=== PATIENT | female | born 1995 | race Hispanic/Latino ===

== ENCOUNTER 2018-01-04 13:17 | Emergency (ER) | payer MEDICAID, SELFPAY ==
[2018-01-04 13:18] VITALS: BP 139/89; BP 139/98; PULSE 89; RESP 14; RESP 18; TEMP 36.1; O2SAT 98; BMI 28.8
--- NOTE | 2018-01-04 13:37 | ED.VISSUMM ---
- ER Visit Summary Date of Service: 01/04/18 Chief Complaint: Headache History of Present Illness: The patient is a 22 F who presents after developing a headache at work yesterday. She works in a car [employer] and is concerned about possible carbon monoxide exposure. Patient states after going home last evening she was just wanted to go to bed and slept all night. She did not hear her phone ringing right next to her. She went back to work this morning and her headache slightly worsened. She feels nauseated today. She has not taken anything for her headaches. She denies any recent head injury or cold-like symptoms. Physical Examination: Vital signs are unremarkable. Patient sitting upright in bed in no acute distress. Head neck examination is unremarkable. Heart is regular rate and rhythm. Lung sounds are clear. Abdomen is soft nontender. Neuro exam is normal. Test Results: CBC and chemistry studies normal. test is negative. Carboxyhemoglobin level is 1.5. Emergency Department Course and Treatment: Patient was given Toradol, Zofran, and IV fluids. On repeat evaluation headache is improved but she still feels somewhat nauseated. She be given Zofran for home as needed. Treatment Plan: [] Disposition: Discharge Impression: Cephalgia, improved This note was generated with [employer] dictation software. It may contain incorrect words, spelling, and punctuation that were not noted in review of the chart prior to signing ED Disposition - Plan for ED Patient: Chief Complaint: Headache Referrals: NOT,DEFINED [NON-STAFF] -
[2018-01-04] MEDS: Ondansetron 4 MG/2 ML Vial IV (14:01)
[2018-01-04] MEDS: 0.9% Normal Saline 1,000 ML 1000 ML IV (14:01)
[2018-01-04] MEDS: Ketorolac 30 MG/ML Syringe IV (14:01)
[2018-01-04 14:12] LABS: Absolute Lymphocyte Count 2.54 X10^3/ul (0.83-4.51); Absolute Neutrophil Count 3.7 X10^3/uL (2.0-7.7); Basophil# 0.01 X10^3/uL; Basophil% 0.2 % (0-1); Eosinophil# 0.05 X10^3/uL; Eosinophils% 0.8 % (0-5); Hematocrit 40.4 % (37-47); Lymphocyte # 2.54 X10^3/ul (4.0); Lymphocyte % 38.5 % (19-41); Mean Corp Hgb Conc 32.2 g/gl (32-36); Mean Corpuscular Hgb 27.1 pg (27.0-32.0); Mean Corpuscular Volume 84.3 fL (81-99); Mean Platelet Vol. 10.9 fl (6.2-12.0); Monocyte# 0.35 X10^3/uL; Monocyte% 5.3 % (0-10); Neutrophil # 3.65 X10^3/uL (2.7-7.7); Neutrophil % 55.2 % (47-70); Platelet Count 205 K/mm3 (150-450); RBC Distribution Width SD 39.5 fl (35.1-43.9); Red Blood Count 4.79 M/mm3 (4.2-5.4); White Blood Count 6.6 K/mm3 (4.4-11.0)
[2018-01-04 14:13] LABS: POSITIVE COUNT NO; POSITIVE DIFFERENTIAL NO; POSITIVE MORPHOLOGY NO
[2018-01-04 14:16] LABS: Carboxyhemoglobin Frac (CO) 1.5 % (0.0-1.5)
[2018-01-04 14:27] LABS: Anion Gap 8 (5-15); BUN 10 mg/dL (7-18); BUN/Creat Ratio 13.7 RATIO (10-20); Chloride 105 mmol/L (98-107); Creatinine, Serum 0.73 mg/dL (0.55-1.02); EST Glomerular Filtration Rate 105 mL/min (>60); Est Glom Filt Rate - Afr Amer 127 mL/min (>60); Estimated Creatinine Clearance 99.15 ml/min; Glucose 89 mg/dL (74-106); Potassium 3.7 mmol/L (3.5-5.1); Sodium Level 141 mmol/L (136-145)
[2018-01-04 14:40] LABS: Pregnancy, Serum, hCG Quali. NEGATIVE Negative (0-9 Nonpreg)
[2018-01-04 15:29] VITALS: BP 127/70; PULSE 83; RESP 18; O2SAT 99
--- NOTE | 2018-01-04 15:45 | ED.DEP ---
ED Disposition - Plan for ED Patient: Disposition: Home or Assisted Living Chief Complaint: Headache Instructions: ED Cephalgia Unspecified Prescriptions: Ondansetron [Zofran Odt] 4 mg PO Q8H PRN PRN #10 tablet PRN Reason: Nausea Referrals: Arnulfo Barrera DO [STAFF PHYSICIAN] - As Needed
[2018-01-04 15:49] VITALS: BP 127/70; PULSE 84; RESP 18; O2SAT 100
== END 2018-01-04 15:50 | disposition home or self-care (01) ==
PROVIDERS: Emergency Provider Emergency Medicine
DX: R51 Headache (principal); R11.0 Nausea
CPT/HCPCS: 80048; 82375; 84703; 85025; 96361; 96374; 96375; 99282; J7030; J2405